=== PATIENT | female | born 1955 | race Two or more races ===

== ENCOUNTER 2022-12-13 08:13 | Outpatient (CLI) | payer OTHER | END 2022-12-13 08:16 | disposition home or self-care (01) | LOC: SONOGRAMA 08:13 | PROVIDERS: ATTEND Pathology Anatomic Pathology & Clinical Pathology | DX: D34 Benign neoplasm of thyroid gland (principal); E06.5 Other chronic thyroiditis; E04.9 Nontoxic goiter, unspecified; E04.2 Nontoxic multinodular goiter ==